=== PATIENT | female | born 2000 | race Caucasian/White ===

== ENCOUNTER 2024-04-03 11:53 | Emergency (ER) | payer OTHER ==
[~2024-04-03] VITALS: Ht 167.6 cm; Wt 83.9 kg
[2024-04-03 12:04] VITALS: BP 107/65; PULSE 91; RESP 18; TEMP 97.7; O2SAT 99
[2024-04-03 12:39] LABS: BASOPHILS # (AUTO) 0.1 K/uL (0.00-0.22); BASOPHILS % (AUTO) 1.2 % (0.0-2.0); EOSINOPHILS # (AUTO) 0.1 K/uL (0-0.4); LYMPHOCYTES % (AUTO) 31.5 % (20.5-51.1); MEAN CORPUSCULAR HEMOGLOBIN 30 pg (27-31); MEAN CORPUSCULAR HGB CONC 34 g/dL (33-37); MEAN CORPUSCULAR VOLUME 86.4 fL (80-94); MONOCYTES # (AUTO) 0.5 K/uL (0.8-1.0); MONOCYTES % (AUTO) 7.9 % (1.7-9.3); NEUTROPHILS # (AUTO) 3.7 K/uL (1.8-7.7); NEUTROPHILS % (AUTO) 58.4 % (42.2-75.2); PLATELET COUNT (AUTO) 378 K/uL (140-450); RED CELL DISTRIBUTION WIDTH 12.8 % (11.6-13.7); WHITE BLOOD COUNT (AUTO) 6.4 K/uL (4.8-10.8)
[2024-04-03] MEDS ORDERED: MEDR10TA PO (13:36)
== END 2024-04-03 13:49 | disposition home or self-care (01) ==
LOC: MED 11:53
DX: N92.1 Excessive and frequent menstruation with irregular cycle (principal); Z79.899 Other long term (current) drug therapy
CPT/HCPCS: 36415; 81002; 81025; 85025; 99283